=== PATIENT | female | born 1950 ===

== ENCOUNTER → 2023-02-08 | Outpatient (REF) | payer MEDICARE, OTHER | LOC: M WUC 19:52 | PROVIDERS: ATTEND Student in an Organized Health Care Education/Training Program | DX: R30.0 Dysuria (principal) ==

== ENCOUNTER → 2025-02-10 | Outpatient (REF) | payer MEDICARE, OTHER | LOC: M LAB REF 20:48 | PROVIDERS: ATTEND Physician Assistant | DX: R30.0 Dysuria (principal) ==

== ENCOUNTER → 2025-02-12 | Outpatient (CLI) | payer MEDICARE, OTHER | LOC: M WUC 12:49 | PROVIDERS: ATTEND Physician Assistant | DX: K59.00 Constipation, unspecified (principal) ==